=== PATIENT | male | born 1990 | race American Indian/Alaskan Native ===

== ENCOUNTER 2017-02-04 11:15 | Emergency (ER) | payer MEDICAID ==
[2017-02-04 12:36] LABS: Bacteria,Urine 1+ /HPF (Negative); Bilirubin,Urine NEG (Negative); Blood,Urine LG (Negative); Ketones,Urine NEG (Negative); Leukocyte Esterase,Urine MOD (Negative); Mucus,Urine FEW /HPF; Nitrite,Urine NEG (Negative); Urobilinogen,Urine < 2.0 mg/dL (<2.0)
[2017-02-04 12:38] LABS: RBC,Urine > 182.0 /HPF (0.0-6.0)
[2017-02-04 18:58] LABS: Basophils % (Auto) 0.4 % (0.0-1.8); Eosinophils % (Auto) 6.7 % (0.0-4.3); Hematocrit 40.8 % (35.5-45.6); Hemoglobin 13.3 gm/dl (11.8-15.2); Mean Corpuscular HGB Conc 33 % (32-34); Mean Corpuscular Hemoglobin 28 pg (28-32); Mean Corpuscular Volume 87 fl (84-94); Platelet Count 137 K/mm3 (140-440); Red Blood Count 4.68 M/mm3 (3.65-5.03); Red Cell Distribution Width 13.6 % (13.2-15.2); White Blood Count 8.4 K/mm3 (4.5-11.0)
--- NOTE | 2017-02-04 19:07 | Emergency Department Report ---
<SAMIR ROGER - Last Filed: 02/04/17 20:38> ED Male HPI - General Chief complaint: Urogenital-Male Stated complaint: BLOOD IN URINE Time Seen by Provider: 02/04/17 18:27 - Related Data Previous Rx's Medication Instructions Recorded Last Taken Type Ciprofloxacin HCl [Ciprofloxacin 500 mg PO Q12H #20 tablet 02/04/17 Unknown Rx TAB] traMADol [Ultram] 50 mg PO Q6HR PRN #12 tablet 02/04/17 Unknown Rx Allergies Allergy/AdvReac Type Severity Reaction Status Date / Time No Known Allergies Allergy Unverified 08/15/15 12:11 ED Review of Systems ROS: Stated complaint: BLOOD IN URINE Other details as noted in HPI ED Past Medical Hx - Medications Home Medications: Home Medications Medication Instructions Recorded Confirmed Last Taken Type Ciprofloxacin HCl [Ciprofloxacin 500 mg PO Q12H #20 tablet 02/04/17 Unknown Rx TAB] traMADol [Ultram] 50 mg PO Q6HR PRN #12 tablet 02/04/17 Unknown Rx ED Course Vital Signs 02/04/17 02/04/17 11:18 19:50 Temperature 98 F Pulse Rate 76 86 Respiratory 20 18 Rate Blood Pressure 152/99 Blood Pressure 129/88 [Left] O2 Sat by Pulse 98 96 Oximetry - Reevaluation(s) Reevaluation #2: 02/04/17 20:43 CT scan of the abdomen and pelvis revealed no acute findings. This Was communicated to patient. 02/04/17 20:43 ED Medical Decision Making - Lab Data Result diagrams: 02/04/17 18:49 02/04/17 18:49 Lab Results 02/04/17 02/04/17 02/04/17 Range/Units 12:04 18:49 18:49 WBC 8.4 (4.5-11.0) K/mm3 RBC 4.68 (3.65-5.03) M/mm3 Hgb 13.3 (11.8-15.2) gm/dl Hct 40.8 (35.5-45.6) % MCV 87 (84-94) fl MCH 28 (28-32) pg MCHC 33 (32-34) % RDW 13.6 (13.2-15.2) % Plt Count 137 L (140-440) K/mm3 Lymph % (Auto) 18.6 (13.4-35.0) % [place] % (Auto) 8.4 H (0.0-7.3) % Eos % (Auto) 6.7 H (0.0-4.3) % Baso % (Auto) 0.4 (0.0-1.8) % Lymph # 1.6 (1.2-5.4) K/mm3 [place] # 0.7 (0.0-0.8) K/mm3 Eos # 0.6 H (0.0-0.4) K/mm3 Baso # 0.0 (0.0-0.1) K/mm3 Seg Neutrophils % 65.9 (40.0-70.0) % Seg Neutrophils # 5.5 (1.8-7.7) K/mm3 Sodium 139 (137-145) mmol/L Potassium 3.7 (3.6-5.0) mmol/L Chloride 100.1 (98-107) mmol/L Carbon Dioxide 24 (22-30) mmol/L Anion Gap 19 mmol/L BUN 12 (9-20) mg/dL Creatinine 0.8 (0.8-1.5) mg/dL Estimated GFR > 60 ml/min BUN/Creatinine Ratio 15.00 % Glucose 108 H (75-100) mg/dL Calcium 9.3 (8.4-10.2) mg/dL Total Bilirubin 0.40 (0.1-1.2) mg/dL AST 58 H (5-40) units/L ALT 61 H (7-56) units/L Alkaline Phosphatase 33 L (35-129) units/L Total Protein 7.9 (6.3-8.2) g/dL Albumin 4.3 (3.9-5) g/dL Albumin/Globulin Ratio 1.2 % Urine Color Yellow (Yellow) Urine Turbidity Slightly-cloudy (Clear) Urine pH 6.0 (5.0-7.0) Ur Specific [place] 1.016 (1.003-1.030) Urine Protein 30 mg/dl (Negative) mg/dL Urine Glucose (UA) Neg (Negative) mg/dL Urine Ketones Neg (Negative) mg/dL Urine Blood Lg (Negative) Urine Nitrite Neg (Negative) Urine Bilirubin Neg (Negative) Urine Urobilinogen < 2.0 (<2.0) mg/dL Ur Leukocyte Esterase Mod (Negative) Urine WBC (Auto) 65.0 H (0.0-6.0) /HPF Urine RBC (Auto) > 182.0 (0.0-6.0) /HPF U Epithel Cells (Auto) < 1.0 (0-13.0) /HPF Urine Bacteria (Auto) 1+ (Negative) /HPF Urine Mucus Few /HPF Urine culture pending - Radiology Data Radiology results: report reviewed CT scan of the abdomen and pelvis revealed no acute findings in the abdomen and pelvis. Critical care attestation.: If time is entered above; I have spent that time in minutes in the direct care of this critically ill patient, excluding procedure time. ED Disposition Clinical Impression: Acute cystitis with hematuria, Hematuria Abdominal pain Qualifiers: Abdominal location: left upper quadrant Qualified Code(s): R10.12 - Left upper quadrant pain Disposition: DISCHARGED TO HOME OR SELFCARE Is pt being admited?: No Does the pt Need Aspirin: No Condition: Stable Instructions: Urinary Tract Infection in Men (ED), Acute Hematuria (ED), Abdominal Pain (ED) Additional Instructions: follow-up urologist as instructed. Follow-up with primary care doctor. He do not have a primary care doctor, follow-up with outside Medical Center. Take antibiotic as prescribed. Increase your fluid intake. Prescriptions: Ciprofloxacin HCl [Ciprofloxacin TAB] 500 mg PO Q12H #20 tablet traMADol [Ultram] 50 mg PO Q6HR PRN #12 tablet PRN Reason: Pain Referrals: PRIMARY CAREMD [Primary Care Provider] - 2-3 Days [facility] [Provider Group] - 2-3 Days [facility] [Outside] - 2-3 Days Forms: Work/School Release Form(ED) <SHOLA WOODARD - Last Filed: 02/05/17 18:26> ED Male HPI - General Source: patient Mode of arrival: Ambulatory Limitations: No Limitations - History of Present Illness Initial comments: PT c/o intermittent hematuria for 5-7 years. PT states the symptoms usually resolve on their own. PT c/o hematuria x 6 days. PT states before he noticed the blood in his urine, he had LUQ abd pain x 1 night. PT states he has never been seen for these symptoms before. PT states last night his urine looked like tea. Complaint: other (hematuria ) Onset/Timin -: Gradual, days(s) Severity scale (0 -10): 0 denies other symptoms, blood in urine. denies: discharge, swelling, mass, urinary retention, dysuria, fever, nausea/vomiting ED Review of Systems Comment: All other systems reviewed and negative Constitutional: denies: chills, fever Respiratory: denies: shortness of breath, SOB with exertion, SOB at rest Cardiovascular: denies: chest pain Gastrointestinal: abdominal pain (LUQ abd pain that has resolved ), other (knot to stomach x years ) Genitourinary: hematuria. denies: dysuria, discharge, testicular pain, testicular mass Musculoskeletal: denies: back pain ED Past Medical Hx - Past Medical History Previous Medical History?: No - Surgical History Past Surgical History?: No - Social History Smoking Status: Never Smoker Substance Use Type: Alcohol ED Physical Exam - General Limitations: No Limitations General appearance: alert, in no apparent distress - Head Head exam: Present: atraumatic, normocephalic, normal inspection - Eye Eye exam: Present: normal appearance. Absent: conjunctival injection - ENT ENT exam: Present: normal exam, normal external ear exam - Neck Neck exam: Present: normal inspection, full ROM. Absent: tenderness, lymphadenopathy - Respiratory Respiratory exam: Present: normal lung sounds bilaterally. Absent: respiratory distress, wheezes, chest wall tenderness - Cardiovascular Cardiovascular Exam: Present: regular rate, normal rhythm, normal heart sounds - GI/Abdominal GI/Abdominal exam: Present: soft, normal bowel sounds, other (firmness to LUQ). Absent: tenderness, guarding, rebound - Extremities Exam Extremities exam: Present: normal inspection, full ROM - Back Exam Back exam: Present: normal inspection, full ROM. Absent: tenderness, CVA tenderness (R), CVA tenderness (L), muscle spasm, paraspinal tenderness, vertebral tenderness - Neurological Exam Neurological exam: Present: alert, oriented X3, normal gait - Psychiatric Psychiatric exam: Present: normal affect, normal mood - Skin Skin exam: Present: warm, dry, intact ED Course - Reevaluation(s) Reevaluation #1: 02/04/17 19:10 PT aware of plan of care. No questions at this time. Report given to ROSAMARIA Vee - Pulse Oximetry Interpretation Digit-Finger Initial Pulse Oximetry Readin Actions Taken: none ED Medical Decision Making - Lab Data Result diagrams: 02/04/17 18:49 02/04/17 18:49 - Differential Diagnosis Poly cystic kidney, uti, CA Critical Care Time: No ED Disposition Is pt being admited?: No Does the pt Need Aspirin: No
[2017-02-04 19:37] LABS: Alanine Aminotransferase 61 units/L (7-56); Albumin 4.3 g/dL (3.9-5); Albumin/Globulin Ratio 1.2 %; Alkaline Phosphatase 33 units/L (35-129); Anion Gap 19 mmol/L; Blood Urea Nitrogen 12 mg/dL (9-20); Calcium 9.3 mg/dL (8.4-10.2); Carbon Dioxide 24 mmol/L (22-30); Chloride 100.1 mmol/L (98-107); Glucose 108 mg/dL (75-100); Potassium 3.7 mmol/L (3.6-5.0); Sodium 139 mmol/L (137-145); Total Protein 7.9 g/dL (6.3-8.2)
[2017-02-04 19:51] VITALS: BP 129/88
--- NOTE | 2017-02-04 20:23 | Cat Scan Report ---
FINAL REPORT EXAM: CT ABDOMEN PELVIS WO CON HISTORY: LUQ pain, hematuria TECHNIQUE: Helical CT scan through the abdomen and pelvis without contrast. Images are reconstructed in the sagittal and coronal planes. PRIORS: None. FINDINGS: Solid organ and bowel evaluation is limited without intravenous contrast. Bowel evaluation is limited without oral contrast. The lung bases are clear. The liver, gallbladder, pancreas, spleen and adrenal glands appear normal. The kidneys appear grossly normal. The pelvic organs appear grossly normal. The stomach appears grossly within normal limits. There are no abnormally dilated loops of bowel or acute inflammatory changes. A normal-appearing appendix is identified. The abdominal aorta has a normal diameter. The bones and subcutaneous soft tissues are unremarkable for age. IMPRESSION: No acute findings in the abdomen/pelvis
[2017-02-04] MEDS ORDERED: XYLOCAINE 1% MPF 5 mL INFILTRATI ONE (20:48)
[2017-02-04] MEDS ORDERED: ROCEPHIN IM STA (20:48)
== END 2017-02-04 21:19 | disposition home or self-care (01) ==
LOC: ED 11:15
DX: N30.01 Acute cystitis with hematuria (principal)
CPT/HCPCS: 36415; 74176; 80053; 81001; 85025; 87086; 96372; 99284; J0696

== ENCOUNTER 2017-11-11 04:27 | Emergency (ER) | payer MEDICAID ==
[2017-11-11 04:45] VITALS: BP 166/83
[2017-11-11] MEDS ORDERED: MOTRIN PO ONE (04:47)
--- NOTE | 2017-11-11 06:47 | XRay Report ---
FINAL REPORT PROCEDURE: XR KNEE 3V LT TECHNIQUE: LEFT knee radiographs, AP, lateral and sunrise views. CPT 79890 HISTORY: knee pain COMPARISON: No prior studies are available for comparison. FINDINGS: Fracture (s) and/or Dislocation(s): None . Alignment: Normal . Joint space(s): Normal . Soft tissues: There is pretibial soft tissue swelling.. Bone mineralization: Normal . Foreign bodies: None . IMPRESSION: There is no acute bony abnormality..
--- NOTE | 2017-11-11 07:44 | Emergency Department Report ---
ED Extremity Problem HPI - General Chief complaint: Extremity Injury, Lower Stated complaint: LEFT KNEE PAIN Time Seen by Provider: 11/11/17 07:39 Source: patient, family Mode of arrival: Ambulatory Limitations: No Limitations - History of Present Illness Initial comments: 27-year-old male past medical history chronic left knee pain presents with acute on chronic left knee pain. Denies any direct trauma falls. States it occasionally flares up. Has seen orthopedic physicians for this in the past. Denies any calf swelling or shortness of breath discoloration of lower extremities or loss of sensation. Patient is ambulatory and occasionally uses cane due to pain. Patient states he has had knee issues since wrestling in high school. Has had ongoing issue with knee pain for over 10 years MD Complaint: extremity pain, joint swelling Onset/Timin -: year(s) Location: left -: Yes arthralgia Severity scale (0 -10): 8 Quality: aching Consistency: intermittent Improves with: cold therapy, immobilization, elevation, medication Worsens with: weight bearing, exertion Associated Symptoms: denies other symptoms - Related Data Previous Rx's Medication Instructions Recorded Last Taken Type Ciprofloxacin HCl [Ciprofloxacin 500 mg PO Q12H #20 tablet 02/04/17 Unknown Rx TAB] traMADol [Ultram] 50 mg PO Q6HR PRN #12 tablet 02/04/17 Unknown Rx Acetaminophen/Codeine [Tylenol 1 tab PO Q6H PRN #2 tab 11/11/17 Unknown Rx /Codeine # 3 tab] Famotidine [Pepcid] 20 mg PO BID PRN #30 tablet 11/11/17 Unknown Rx Naproxen [Naprosyn TAB] 375 mg PO BID PRN #25 tablet 11/11/17 Unknown Rx Allergies Allergy/AdvReac Type Severity Reaction Status Date / Time No Known Allergies Allergy Unverified 08/15/15 12:11 ED Review of Systems ROS: Stated complaint: LEFT KNEE PAIN Other details as noted in HPI Constitutional: denies: chills, fever Eyes: denies: eye pain, eye discharge, vision change ENT: denies: ear pain, throat pain Respiratory: denies: cough, shortness of breath, wheezing Cardiovascular: denies: chest pain, palpitations Endocrine: no symptoms reported Gastrointestinal: denies: abdominal pain, nausea, diarrhea Genitourinary: denies: urgency, dysuria Musculoskeletal: arthralgia. denies: back pain, joint swelling Skin: denies: rash, lesions Neurological: denies: headache, weakness, paresthesias Psychiatric: denies: anxiety, depression Hematological/Lymphatic: denies: easy bleeding, easy bruising ED Past Medical Hx - Past Medical History Previous Medical History?: No Additional medical history: Chronic Left knee pain - Surgical History Past Surgical History?: No - Social History Smoking Status: Never Smoker Substance Use Type: None - Medications Home Medications: Home Medications Medication Instructions Recorded Confirmed Last Taken Type Ciprofloxacin HCl [Ciprofloxacin 500 mg PO Q12H #20 tablet 02/04/17 Unknown Rx TAB] traMADol [Ultram] 50 mg PO Q6HR PRN #12 tablet 02/04/17 Unknown Rx Acetaminophen/Codeine [Tylenol 1 tab PO Q6H PRN #2 tab 11/11/17 Unknown Rx /Codeine # 3 tab] Famotidine [Pepcid] 20 mg PO BID PRN #30 tablet 11/11/17 Unknown Rx Naproxen [Naprosyn TAB] 375 mg PO BID PRN #25 tablet 11/11/17 Unknown Rx ED Physical Exam - General Limitations: No Limitations General appearance: alert, in no apparent distress - Head Head exam: Present: atraumatic, normocephalic - Eye Eye exam: Present: normal appearance, PERRL, EOMI - ENT ENT exam: Present: mucous membranes moist - Neck Neck exam: Present: normal inspection - Respiratory Respiratory exam: Present: normal lung sounds bilaterally. Absent: respiratory distress - Cardiovascular Cardiovascular Exam: Present: regular rate, normal rhythm. Absent: systolic murmur, diastolic murmur, rubs, gallop - GI/Abdominal GI/Abdominal exam: Present: soft, normal bowel sounds - Rectal Rectal exam: Present: deferred - Extremities Exam Extremities exam: Present: normal inspection - Expanded Lower Extremity Exam Left Hip exam: Present: normal inspection, full ROM Upper Leg exam: Present: normal inspection, full ROM Knee exam: Present: normal inspection, full ROM (left knee flexion and extension intact), pain/laxity with valgus (some pain with valgus movement) Lower Leg exam: Present: normal inspection, full ROM Ankle exam: Present: normal inspection, full ROM Foot/Toe exam: Present: normal inspection, full ROM Neuro vascular tendon exam: Present: no vascular compromise (distal pulses strong to palpation) - Back Exam Back exam: Present: normal inspection - Neurological Exam Neurological exam: Present: alert, oriented X3 - Psychiatric Psychiatric exam: Present: normal affect, normal mood - Skin Skin exam: Present: warm, dry, intact, normal color. Absent: rash ED Course Vital Signs 11/11/17 04:37 Temperature 99.2 F Pulse Rate 102 H Blood Pressure 166/83 O2 Sat by Pulse 98 Oximetry ED Medical Decision Making - Medical Decision Making A/P: Chronic left knee pain him a possible meniscus injury or lateral collateral ligament and 1-referral to orthopedics 2-NSAIDs when necessary 3-left lower extremity neurovascularly intact, x-ray unremarkable, no signs of infection on clinical exam 4- knee immobilizer, RICE therapy Critical care attestation.: If time is entered above; I have spent that time in minutes in the direct care of this critically ill patient, excluding procedure time. ED Disposition Clinical Impression: Chronic pain of left knee Disposition: DC- TO HOME OR SELFCARE Is pt being admited?: No Does the pt Need Aspirin: No Condition: Stable Instructions: Arthralgia (ED), Knee Pain (ED) Prescriptions: Acetaminophen/Codeine [Tylenol /Codeine # 3 tab] 1 tab PO Q6H PRN #2 tab PRN Reason: Pain Famotidine [Pepcid] 20 mg PO BID PRN #30 tablet PRN Reason: Indigestion Naproxen [Naprosyn TAB] 375 mg PO BID PRN #25 tablet PRN Reason: Pain Referrals: ESTIVEN WRIGHT MD [Staff Physician] - 3-5 Days Forms: Work/School Release Form(ED) Time of Disposition: 07:56
== END 2017-11-11 08:11 | disposition home or self-care (01) ==
LOC: ED 04:27
DX: M25.562 Pain in left knee (principal); G89.29 Other chronic pain; M79.89 Other specified soft tissue disorders

== ENCOUNTER 2022-04-26 09:58 | Outpatient (CLI) | payer OTHER ==
--- NOTE | 2022-04-26 12:12 | XRay Report ---
Cervical spine 3 views INDICATION: Neck pain IMPRESSION: Mild discogenic degenerative changes at C5-C6. No fracture or subluxation is identified. Signer Name: Herman Soni MD Signed: 04/26/2022 12:07 PM Workstation Name: [id number]
--- NOTE | 2022-04-26 12:13 | XRay Report ---
Ankle bilateral 5 views INDICATION: Bilateral ankle pain IMPRESSION: No acute fracture or subluxation is identified within either ankle. There is some swellin g identified the lateral soft tissues of the ankle bilaterally. Signer Name: Herman Soni MD Signed: 04/26/2022 12:08 PM Workstation Name: [id number]
== END 2022-04-26 09:59 | disposition home or self-care (01) ==
LOC: XRAY 09:58
PROVIDERS: ATTEND Internal Medicine
DX: M47.812 Spondylosis without myelopathy or radiculopathy, cervical region (principal); M25.572 Pain in left ankle and joints of left foot; M25.571 Pain in right ankle and joints of right foot; M25.471 Effusion, right ankle; M25.472 Effusion, left ankle
CPT/HCPCS: 72040

== ENCOUNTER 2022-04-27 20:28 | Emergency (ER) | payer SELFPAY ==
[2022-04-27 20:43] VITALS: BP 130/64
== END 2022-04-27 22:38 | disposition left against medical advice (07) ==
LOC: ED 20:28
DX: M79.89 Other specified soft tissue disorders (principal); Z53.21 Procedure and treatment not carried out due to patient leaving prior to being seen by health care provider